=== PATIENT | male | born 1960 | race Caucasian/White ===

== ENCOUNTER 2016-10-30 20:25 | Inpatient (IN) | payer OTHER ==
[~2016-10-30] VITALS: Ht 181.6 cm; Wt 78.4 kg
[2016-10-30] MEDS ORDERED: ONDANSETRON 4 MG/2 ML VIAL IV ONE (20:45)
[2016-10-30] MEDS ORDERED: MORPHINE SULFATE 2 MG/1 ML DISP.SYRIN IV ONE (20:45)
[2016-10-30] MEDS ORDERED: IV NORMAL SALINE 1000 ML BAG IV ONE ×2 (20:45→22:00)
[2016-10-30] MEDS ORDERED: ACYC400T2 PO (20:46)
[2016-10-30] MEDS ORDERED: FLUC200T8 PO (20:46)
[2016-10-30] MEDS ORDERED: FOLI1TAB16 PO (20:46)
[2016-10-30] MEDS ORDERED: PRED20TA PO (20:46)
[2016-10-30] MEDS ORDERED: SULF1TAB3 PO (20:46)
[2016-10-30] MEDS ORDERED: POTA20TA83 PO (20:46)
[2016-10-30] MEDS ORDERED: FURO-151 PO (20:46)
[2016-10-30] MEDS ORDERED: FAMO-132 PO (20:46)
[2016-10-30] MEDS ORDERED: MORPHINE SULFATE 4 MG/1 ML DISP.SYRIN ONE (21:01)
[2016-10-30] MEDS ORDERED: ONDANSETRON 4 MG/2 ML VIAL ONE (21:01)
[2016-10-30 21:27] LABS: MEAN CORPUSCULAR HEMOGLOBIN 39.5 uug (23.8-33.4); MEAN CORPUSCULAR HGB CONC 36 g/dL (32.5-36.3); MEAN CORPUSCULAR VOLUME 110.7 fL (73.0-96.2); RED BLOOD CELL COUNT(AUTO) 2.53 MIL/uL (4.06-5.63); RED CELL DISTRIBUTION WIDTH 28.2 % (12.1-16.2)
[2016-10-30 21:30] LABS: PLATELET COUNT (AUTO) 12 K/uL (152-348); WHITE BLOOD COUNT (AUTO) 166.7 K/uL (3.6-10.2)
[2016-10-30 21:34] LABS: ETHANOL < 3 MG/DL (0-0)
[2016-10-30 21:41] LABS: ALBUMIN 3.3 g/dL (3.4-5.0); ALKALINE PHOSPHATASE 115 U/L (50-136); BILIRUBIN,DIRECT < 0.1 mg/dL (0.0-0.2); BILIRUBIN,TOTAL 0.3 mg/dL (0.2-1.0); CALCIUM 8.8 mg/dL (8.5-10.1); CARBON DIOXIDE 28 mmol/L (21-32); CHLORIDE 99 mmol/L (98-107); CREATININE 1.2 mg/dL (0.6-1.3); GFR 62 mL/min (>60); GLUCOSE 152 mg/dL (74-106); POTASSIUM 4.8 mmol/L (3.5-5.1); SODIUM SERUM 137 mmol/L (136-145); TOTAL PROTEIN, SERUM 6.4 g/dL (6.4-8.2); UREA NITROGEN, BLOOD 34 mg/dL (7-18)
[2016-10-30 21:48] LABS: *BILIRUBIN,URIN NEGATIVE (NEGATIVE); *BLOOD, URINE NEGATIVE (NEGATIVE); *CLARITY,URINE CLEAR (CLEAR); *COLOR,URINE DARK YELLOW (YELLOW); *KETONES,URINE NEGATIVE (NEGATIVE); *PROTEIN,URINE 1+ (NEGATIVE); *UROBILINOGEN,URINE 0.2 E.U./dl (NORMAL); LEUKOCYTE ESTERASE ,URINE NEGATIVE (NEGATIVE); NITRITE, URINE NEGATIVE (NEGATIVE); PH,URINE 5.5 (5.0-8.0); UGLUCOSE NEGATIVE (NEGATIVE)
[2016-10-30 21:50] LABS: LACTIC ACID 2.8 mmol/L (0.4-2.0)
[2016-10-30 21:57] LABS: *AMPHETAMINE, URINE NEGATIVE (NEGATIVE); *BARBITURATE, URINE NEGATIVE (NEGATIVE); *CANNABINOID, URINE POSITIVE (NEGATIVE); *COCCAINE, URINE NEGATIVE (NEGATIVE); *OPIATE, URINE POSITIVE (NEGATIVE); *PHENCYCLIDINE SCREEN,URINE NEGATIVE (NEGATIVE)
[2016-10-30] MEDS ORDERED: MEROPENEM 500 MG in IV NORMAL SALINE 100 ML IV ONE (22:00)
[2016-10-30] MEDS ORDERED: VANCOMYCIN 1G/D5W 200 ML PIGGYBACK IV ONE (22:00)
[2016-10-30 22:01] LABS: WBC,URINE 0-3 /HPF (0-3)
[2016-10-30 22:02] LABS: MUCUS,URINE MODERATE /LPF (0-FEW)
[2016-10-30 22:10] LABS: BAND % (MANUAL) 10 % (0-10); BLASTS, MANUAL % 71 % (0-0); LYMPHOCYTES % (MANUAL) 13 % (20-40); NEUTROPHILS % (MANUAL) 6 % (42-75)
[2016-10-30 22:13] LABS: ANISOCYTOSIS 3+; PLATELET ESTIMATE MARKED DECREASED
[2016-10-30] MEDS ORDERED: HYDROMORPHONE 1 MG/1 ML DISP.SYRIN IV ONE (22:15)
[2016-10-30 22:18] LABS: ALANINE AMINOTRANSFERASE 36 U/L (16-63); ASPARTATE AMINOTRANSFERASE 64 U/L (15-37)
[2016-10-30] MEDS ORDERED: MEROPENEM 1 G VIAL IV ONE (22:27)
[2016-10-30] MEDS ORDERED: MEROPENEM 500 MG VIAL IV ONE (22:28)
[2016-10-30] MEDS ORDERED: HYDROCODONE/APAP 5-325MG TABLET PO PRN (23:45)
[2016-10-30] MEDS ORDERED: MORPHINE SULFATE 2 MG/1 ML DISP.SYRIN IV PRN (23:45)
[2016-10-30] MEDS ORDERED: ACETAMINOPHEN 325 MG TABLET PO PRN (23:45)
[2016-10-30] MEDS ORDERED: ONDANSETRON 4 MG/2 ML VIAL IV PRN (23:45)
[2016-10-31] VITALS (8 sets, daily range): BP systolic 96–132; BP diastolic 66–80
[2016-10-31] MEDS: IV NS 1000 ML 1,000 ML IV PRN ×2 (00:38→17:07)
[2016-10-31] MEDS ORDERED: HYDROMORPHONE 1 MG/1 ML DISP.SYRIN ONE ×2 (01:45→06:30)
[2016-10-31] MEDS: HYDROMORPHONE 1 MG/1 ML DISP.SYRIN IV PRN ×2 (01:47→06:29)
[2016-10-31] MEDS: CEFEPIME HCL 1 G in IV DEXTROSE 5% 50 ML IV SCH ×3 (06:06→21:55)
[2016-10-31] MEDS ORDERED: CEFEPIME HCL 1 G VIAL ONE (06:07)
[2016-10-31 06:58] LABS: BASOPHILS # (AUTO) 0.1 K/uL (0.0-8.0); BASOPHILS % (AUTO) 0.1 % (0.0-2.0); HEMOGLOBIN 8.2 g/dL (12.5-16.3); LYMPHOCYTES # (AUTO) 58.3 K/uL (20.0-40.0); LYMPHOCYTES % (AUTO) 44.2 % (20.5-51.5); MEAN CORPUSCULAR HEMOGLOBIN 39.3 uug (23.8-33.4); MEAN CORPUSCULAR HGB CONC 36 g/dL (32.5-36.3); MEAN CORPUSCULAR VOLUME 109.6 fL (73.0-96.2); MONOCYTES # (AUTO) 0.4 K/uL (2.0-10.0); MONOCYTES % (AUTO) 0.3 % (0.0-11.0); NEUTROPHILS # (AUTO) 73.2 K/uL (1.8-8.9); NEUTROPHILS % (AUTO) 55.4 % (38.5-71.5); RED CELL DISTRIBUTION WIDTH 28.1 % (12.1-16.2)
[2016-10-31 07:18] LABS: RED BLOOD CELL COUNT(AUTO) 2.09 MIL/uL (4.06-5.63)
[2016-10-31 07:20] LABS: PLATELET COUNT (AUTO) 12 K/uL (152-348)
[2016-10-31 07:41] LABS: ALBUMIN 2.9 g/dL (3.4-5.0); BILIRUBIN,TOTAL 0.4 mg/dL (0.2-1.0); CALCIUM 7.9 mg/dL (8.5-10.1); CREATININE 1.1 mg/dL (0.6-1.3); MAGNESIUM 1.9 mg/dL (1.8-2.4); PHOSPHOROUS 3.2 mg/dL (2.5-4.9); POTASSIUM 4.2 mmol/L (3.5-5.1); TOTAL PROTEIN, SERUM 5.7 g/dL (6.4-8.2); URIC ACID 8.7 mg/dL (3.5-7.2)
[2016-10-31] MEDS: FOLIC ACID 1 MG TABLET PO SCH (08:32)
[2016-10-31] MEDS: predniSONE 20 MG TABLET PO SCH (08:32)
[2016-10-31] MEDS: FAMOTIDINE 20 MG TABLET PO SCH ×2 (08:32→21:52)
[2016-10-31] MEDS: ACYCLOVIR 400 MG TABLET PO SCH ×2 (08:32→21:52)
[2016-10-31] MEDS: FLUCONAZOLE 200 MG TABLET PO SCH (08:43)
[2016-10-31] MEDS: VANCOMYCIN IV 1,250 MG in IV DEXTROSE 5% 500 ML IV SCH ×2 (08:49→22:52)
[2016-10-31] MEDS ORDERED: POTASSIUM CHLORIDE 20 MEQ TAB.PRT.SR PO SCH (09:00)
[2016-10-31 10:50] LABS: BAND % (MANUAL) 4 % (0-10); BLASTS, MANUAL % 82 % (0-0); LYMPHOCYTES % (MANUAL) 8 % (20-40); METAMYELOCYTES % 1 % (0-1); NEUTROPHILS % (MANUAL) 5 % (42-75)
[2016-10-31 10:51] LABS: PLATELET ESTIMATE MARKED DECREASED; SMUDGE CELLS MODERATE
[2016-10-31 10:52] LABS: ANISOCYTOSIS 3+
[2016-10-31 10:53] LABS: STOMATOCYTES 2+; TEAR DROP CELLS 1+
[2016-10-31] MEDS ORDERED: DEXTROSE 50% 50 ML DISP.SYRIN IV PRN (11:00)
[2016-10-31] MEDS: INSULIN REGULAR, HUMAN 300 UNIT/3 ML VIAL SQ PRN ×3 (12:13→22:36)
[2016-10-31] MEDS: BLOOD SUGAR DIAGNOSTIC 1 EACH STRIP VI SCH ×3 (12:14→21:59)
[2016-10-31] MEDS: ALLOPURINOL 100 MG TABLET PO SCH (16:43)
[2016-10-31 16:52] LABS: HEMATOCRIT 25.4 % (36.7-47.1); HEMOGLOBIN 8.6 g/dL (12.5-16.3); MEAN CORPUSCULAR HEMOGLOBIN 37.6 uug (23.8-33.4); MEAN CORPUSCULAR HGB CONC 34 g/dL (32.5-36.3); MEAN CORPUSCULAR VOLUME 110.3 fL (73.0-96.2); RED CELL DISTRIBUTION WIDTH 28.4 % (12.1-16.2)
[2016-10-31] MEDS: HYDROXYUREA 500 MG CAPSULE PO SCH (16:52)
[2016-10-31 17:06] LABS: PLATELET COUNT (AUTO) 36 K/uL (152-348); WHITE BLOOD COUNT (AUTO) 117.4 K/uL (3.6-10.2)
[2016-10-31 17:39] LABS: BAND % (MANUAL) 3 % (0-10); NEUTROPHILS % (MANUAL) 2 % (42-75)
[2016-10-31 17:40] LABS: BLASTS, MANUAL % 76 % (0-0); LYMPHOCYTES % (MANUAL) 18 % (20-40); METAMYELOCYTES % 1 % (0-1); PLATELET ESTIMATE MARKED DECREASED
[2016-10-31 17:41] LABS: ANISOCYTOSIS 3+; STOMATOCYTES 1+; TEAR DROP CELLS FEW
[2016-11-01] VITALS: BP 102/60
[2016-11-01] MEDS: HYDROMORPHONE 1 MG/1 ML DISP.SYRIN IV PRN ×3 (02:23→20:52)
[2016-11-01 04:00] VITALS: BP 119/83
[2016-11-01 06:48] LABS: BASOPHILS # (AUTO) 0.9 K/uL (0.0-8.0); BASOPHILS % (AUTO) 0.7 % (0.0-2.0); EOSINOPHILS # (AUTO) 0.1 K/uL (0.0-0.7); EOSINOPHILS % (AUTO) 0.1 % (0.0-7.0); LYMPHOCYTES # (AUTO) 4.1 K/uL (20.0-40.0); LYMPHOCYTES % (AUTO) 3.1 % (20.5-51.5); MEAN CORPUSCULAR HEMOGLOBIN 38.5 uug (23.8-33.4); MEAN CORPUSCULAR HGB CONC 35 g/dL (32.5-36.3); MEAN CORPUSCULAR VOLUME 110.8 fL (73.0-96.2); MONOCYTES # (AUTO) 0.5 K/uL (2.0-10.0); MONOCYTES % (AUTO) 0.4 % (0.0-11.0); NEUTROPHILS # (AUTO) 126.7 K/uL (1.8-8.9); NEUTROPHILS % (AUTO) 95.7 % (38.5-71.5); RED CELL DISTRIBUTION WIDTH 28.1 % (12.1-16.2)
[2016-11-01] MEDS: CEFEPIME HCL 1 G in IV DEXTROSE 5% 50 ML IV SCH ×3 (06:53→22:00)
[2016-11-01 07:06] LABS: ALBUMIN 2.9 g/dL (3.4-5.0); BILIRUBIN,TOTAL 0.3 mg/dL (0.2-1.0); CALCIUM 8.3 mg/dL (8.5-10.1); CREATININE 0.9 mg/dL (0.6-1.3); MAGNESIUM 2.2 mg/dL (1.8-2.4); PHOSPHOROUS 3.3 mg/dL (2.5-4.9); POTASSIUM 3.2 mmol/L (3.5-5.1); TOTAL PROTEIN, SERUM 5.7 g/dL (6.4-8.2); WHITE BLOOD COUNT (AUTO) 123.6 K/uL (3.6-10.2)
[2016-11-01 07:07] LABS: HEMOGLOBIN 8.1 g/dL (12.5-16.3); PLATELET COUNT (AUTO) 20 K/uL (152-348)
[2016-11-01 07:08] LABS: HEMATOCRIT 23.3 % (36.7-47.1)
[2016-11-01] MEDS: BLOOD SUGAR DIAGNOSTIC 1 EACH STRIP VI SCH ×4 (07:16→20:43)
[2016-11-01] MEDS: FLUCONAZOLE 200 MG TABLET PO SCH (08:10)
[2016-11-01] MEDS: predniSONE 20 MG TABLET PO SCH (08:10)
[2016-11-01] MEDS: ACYCLOVIR 400 MG TABLET PO SCH ×2 (08:10→20:25)
[2016-11-01] MEDS: FAMOTIDINE 20 MG TABLET PO SCH ×2 (08:10→20:25)
[2016-11-01] MEDS: FOLIC ACID 1 MG TABLET PO SCH (08:10)
[2016-11-01] MEDS: ALLOPURINOL 100 MG TABLET PO SCH (08:10)
[2016-11-01] MEDS: HYDROXYUREA 500 MG CAPSULE PO SCH (08:12)
[2016-11-01 09:39] LABS: BLASTS, MANUAL % 77 % (0-0); LYMPHOCYTES % (MANUAL) 16 % (20-40); METAMYELOCYTES % 2 % (0-1); MYELOCYTES % 1 % (0-0); NEUTROPHILS % (MANUAL) 4 % (42-75)
[2016-11-01 09:41] LABS: ANISOCYTOSIS 3+; OVALOCYTES 1+; PLATELET ESTIMATE MARKED DECREASED; SMUDGE CELLS MODERATE; STOMATOCYTES 1+; TEAR DROP CELLS 1+
[2016-11-01] MEDS: VANCOMYCIN IV 1,250 MG in IV DEXTROSE 5% 500 ML IV SCH ×2 (10:18→20:25)
[2016-11-01] MEDS: IV NS 1000 ML 1,000 ML IV PRN (10:38)
[2016-11-01 11:08] VITALS: BP 138/76
[2016-11-01] MEDS: INSULIN REGULAR, HUMAN 300 UNIT/3 ML VIAL SQ PRN ×3 (11:40→20:45)
[2016-11-01] MEDS ORDERED: HYDROXYUREA 500 MG CAPSULE PO STA (14:54)
[2016-11-01] MEDS ORDERED: POTASSIUM CHLORIDE 20 MEQ TAB.PRT.SR PO ONE (15:00)
[2016-11-01 15:08] VITALS: BP 132/82
[2016-11-01 20:11] VITALS: BP 125/95
[2016-11-02] MEDS ORDERED: HYDROXYUREA 500 MG CAPSULE PO SCH (09:00)
== END 2016-11-01 22:50 | disposition left against medical advice (07) | DRG 690 ==
LOC: ER 20:27 → TELE 23:48
PROVIDERS: ADMIT Internal Medicine; ATTEND Internal Medicine
PROC: 30233R1 Transfusion of Nonautologous Platelets into Peripheral Vein, Percutaneous Approach (ICD-10-PCS; principal; 2016-10-31)
DX: C91.00 Acute lymphoblastic leukemia not having achieved remission (principal); N17.0 Acute kidney failure with tubular necrosis; R65.20 Severe sepsis without septic shock; E44.0 Moderate protein-calorie malnutrition; D69.59 Other secondary thrombocytopenia; E11.65 Type 2 diabetes mellitus with hyperglycemia; I82.532 Chronic embolism and thrombosis of left popliteal vein; A41.9 Sepsis, unspecified organism; N39.0 Urinary tract infection, site not specified; Z91.19 Patient's noncompliance with other medical treatment and regimen; K57.30 Diverticulosis of large intestine without perforation or abscess without bleeding; Z68.23 Body mass index [BMI] 23.0-23.9, adult; T38.0X5A Adverse effect of glucocorticoids and synthetic analogues, initial encounter; Y92.89 Other specified places as the place of occurrence of the external cause; D63.0 Anemia in neoplastic disease; J43.9 Emphysema, unspecified; Z92.21 Personal history of antineoplastic chemotherapy; I70.0 Atherosclerosis of aorta; D75.89 Other specified diseases of blood and blood-forming organs; F12.10 Cannabis abuse, uncomplicated; F11.10 Opioid abuse, uncomplicated
CPT/HCPCS: 36415; 70030-TC; 71010; 80307; 83605; 83735; 84100; 84550; 85025; 85049; 85730; 86900; 86901; 87040; 87086; 93005; A4663; G6040-TC; J0692; J1170; J1815; J2185; J2270; J2405; J3370; J3490; J7030; J7050; J7060; J7512; P9021; P9035-BL